=== PATIENT | male | born 1990 | race Caucasian/White ===

== ENCOUNTER 2018-08-16 16:35 | Emergency (ER) | payer BC ==
[2018-08-16 16:41] VITALS: RESP 18
[2018-08-16] MEDS ORDERED: IBUPROFEN 800 MG TAB PO STA (17:13)
[2018-08-16] MEDS ORDERED: LIDOCAINE 1% INJ 10MG/ML (20 ML MDV) SQ ONE (17:13)
[2018-08-16] MEDS ORDERED: DIPH,PERTUS(ACELL)TETVAC-LF 0.5 ML VIAL IM ONE (17:13)
--- NOTE | 2018-08-16 17:18 | ED ---
General Adult HPI - General Chief complaint: Wound/Laceration Stated complaint: Fingers laceration Time Seen by Provider: 08/16/18 16:47 Source: patient, RN notes reviewed Mode of arrival: ambulatory Limitations: no limitations - History of Present Illness Initial comments: 27-year-old male presents to the emergency department for a chief complaint of laceration to the left fourth and fifth ears 1 hour. Patient states he was using a knife to cut a branch when he accidentally cut his fingers. Patient states his pain is currently at a 5 out of 10 but when he moves his fingers his pain goes up to an 8 out of 10. Patient states he can bend his fingers but it is painful. Patient does not have an up-to-date tetanus at this time. Patient denies dizziness or lightheadedness but does admit to feeling somewhat diaphoretic. Patient states this is improving however. Patient has no other complaints at this time including shortness of breath, chest pain, abdominal pain, nausea or vomiting, headache, or visual changes. - Related Data Previous Rx's Medication Instructions Recorded Cephalexin [Keflex] 500 mg PO Q8HR #15 cap 08/16/18 Allergies Allergy/AdvReac Type Severity Reaction Status Date / Time shellfish derived [Shellfish] Allergy Unknown Verified 08/16/18 16:41 Childhood tree nut [Nut] Allergy Unknown Verified 08/16/18 16:41 Childhood Review of Systems ROS Statement: Those systems with pertinent positive or pertinent negative responses have been documented in the HPI. ROS Other: All systems not noted in ROS Statement are negative. Past Medical History Past Medical History: No Reported History History of Any Multi-Drug Resistant Organisms: None Reported Past Surgical History: Adenoidectomy, Tonsillectomy Past Psychological History: No Psychological Hx Reported Smoking Status: Never smoker Past Alcohol Use History: Occasional Past Drug Use History: None Reported General Exam Limitations: no limitations General appearance: alert, in no apparent distress Head exam: Present: atraumatic, normocephalic, normal inspection Eye exam: Present: normal appearance, PERRL, EOMI. Absent: scleral icterus, conjunctival injection, periorbital swelling ENT exam: Present: normal exam, mucous membranes moist Neck exam: Present: normal inspection. Absent: tenderness, meningismus, lymphadenopathy Respiratory exam: Present: normal lung sounds bilaterally. Absent: respiratory distress, wheezes, rales, rhonchi, stridor Cardiovascular Exam: Present: regular rate, normal rhythm, normal heart sounds. Absent: systolic murmur, diastolic murmur, rubs, gallop, clicks Extremities exam: Present: normal capillary refill (Capillary refill less than 2 seconds and radial pulse 2+. Sensation intact in the left upper extremity.), other (1 cm laceration noted to the dorsal right fourth PIP joint of both the fourth and fifth digits. With flexion of the fourth digit there does appear to be visualized patient of bone or joint capsule. Tendon is not identified. Deep structures not involved in laceration of fifth digit). Absent: full ROM ( Patient has full range of motion of all joints in the fourth and fifth digit. Patient has intact strength 5 out of 5 with flexion and extension of the PIP joint.) Course Vital Signs 08/16/18 16:38 Temperature 98.2 F Pulse Rate 93 Respiratory 18 Rate Blood Pressure 111/68 O2 Sat by Pulse 100 Oximetry Procedures - Laceration Laceration #1 Consent Obtained: verbal consent Indication: laceration Site: hand (left dorsal 4th PIP joint) Size (cm): 1 Description: linear Anesthetic Used: lidocaine 1% Anesthesia Technique: local infiltration Amount (mls): 2 Pre-repair: wound explored, irrigated extensively (Irrigated extensively with saline pressure irrigation), deep structures intact (Deep structures are visualized in the PIP joint. Possible bone visualization. Tendon cannot be visualized.) Type of Sutures: other (Ethilon) Size of Sutures: 5-0 Number of Sutures: 3 Technique: simple, interrupted Patient Tolerated Procedure: well, no complications Laceration #2 Consent Obtained: verbal consent Indication: laceration Site: hand (Left dorsal PIP joint of fifth finger) Size (cm): 1 Description: linear Depth: simple, single layer Anesthetic Used: lidocaine 1% Anesthesia Technique: local infiltration Amount (mls): 1 Pre-repair: wound explored, irrigated extensively, deep structures intact Type of Sutures: other (Ethilon) Size of Sutures: 5-0 Number of Sutures: 3 Technique: simple, interrupted Patient Tolerated Procedure: well, no complications Medical Decision Making - Medical Decision Making 27-year-old male presents to the emergency determine for chief complaint of laceration with a knife to the left fourth and fifth digits. This happened about one hour ago. X-ray did not show any fractures or dislocations. On exam patient has once an meter laceration over the dorsal PIP joint of the left fourth digit. Possible visualization of bone. Tendon cannot be visualized so I cannot rule out tendon injury. However patient does have full strength with both extension and flexion of the PIP joint. Wound was cleaned thoroughly and repaired with 3 sutures. Patient was given Ancef to cover him due to possible bone exposure. Splint was applied and will be worn until he sees orthopedics. Laceration of fifth digit was also repaired, no involvement of deep structures. Patient will take Keflex at home. Patient will follow-up with orthopedics on Friday. Discussed monitoring for symptoms of infection as patient may have joint involvement of the fourth finger and is at increased risk. He agrees to do this and will return immediately if he notices any worsening symptoms or signs of infection. Disposition Clinical Impression: Laceration Disposition: HOME SELF-CARE Condition: Good Instructions: Laceration (ED), Care For Your Stitches (ED) Additional Instructions: Please wear splint until you see orthopedics on Friday. Please keep the area clean. Take Motrin or Tylenol for pain and ice the area. Monitor for signs of infection such as spreading or streaking redness, drainage, or fever and return if these occur. Return if you have any other worsening symptoms. Prescriptions: Cephalexin [Keflex] 500 mg PO Q8HR #15 cap Is patient prescribed a controlled substance at d/c from ED?: No Referrals: Ramin Blakely DO [Primary Care Provider] - 1-2 days Gil Palomares MD [Medical Doctor] - 1-2 days Time of Disposition: 18:28
--- NOTE | 2018-08-16 17:43 | XR ---
EXAMINATION TYPE: XR hand complete LT DATE OF EXAM: 08/16/2018 COMPARISON: NONE HISTORY: Laceration. Pain TECHNIQUE: 3 views FINDINGS: I see no fracture nor dislocation. Joint spaces are normal. There is no sign of a foreign body. IMPRESSION: Negative left hand exam.
[2018-08-16] MEDS ORDERED: ceFAZolin 1,000 MG VIAL IM STA (18:18)
[2018-08-16 18:50] VITALS: BP 109/59; PULSE 68; TEMP 98.7
== END 2018-08-16 18:50 | disposition home or self-care (01) ==
LOC: EC 16:35
DX: S61.215A Laceration without foreign body of left ring finger without damage to nail, initial encounter (principal); S61.217A Laceration without foreign body of left little finger without damage to nail, initial encounter; Z91.013 Allergy to seafood; Z91.018 Allergy to other foods; Z23 Encounter for immunization; W26.0XXA Contact with knife, initial encounter; Y93.89 Activity, other specified
CPT/HCPCS: 73130; 90715; 99283; 12001; 90471; 96372; J0690; J2001